=== PATIENT | female | born 1945 | race Caucasian/White ===

== ENCOUNTER 2017-05-23 11:31 | Day surgery (SDC) | payer MEDICARE, OTHER ==
[~2017-05-23] VITALS: Ht 160 cm; Wt 79.6 kg
[~2017-05-23 11:31] MED LIST: HYDCHL25 PO; METO25ER PO; OLME5TAB PO; Toprol Xl25 MG PO
[2017-05-24 05:33] LABS: BASOPHILS ABSOLUTE AUTO 0.01 K/mm3 (0.00-0.23); BASOPHILS PERCENT AUTO 0 % (0-2); EOSINOPHILS PERCENT AUTO 0 % (0-6); Hematocrit 35.9 % (33.0-51.0); Hemoglobin 12.4 g/dL (11.5-16.0); IMMATURE GRAN ABSOLUTE AUTO 0.04 K/mm3 (0.00-0.10); IMMATURE GRAN PERCENT AUTO 0 % (0-1); LYMPHOCYTES ABSOLUTE AUTO 0.91 K/mm3 (0.84-5.20); LYMPHOCYTES PERCENT AUTO 10 % (21-46); MONOCYTES ABSOLUTE AUTO 0.33 K/mm3 (0.16-1.47); MONOCYTES PERCENT AUTO 4 % (4-13); Mean Corpuscular HGB 31.2 pg (26.0-34.0); Mean Corpuscular HGB Conc 34.5 g/dL (31.5-36.5); Mean Corpuscular Volume 90 fL (80-100); Mean Platelet Volume 9.9 fL (9.1-12.4); NEUTROPHILS ABSOLUTE AUTO 7.64 K/mm3 (1.96-9.15); NEUTROPHILS PERCENT AUTO 86 % (41-73); Platelet Count 190 K/mm3 (150-400); RDW Coefficient Variation 12.6 % (11.7-14.2); RDW Standard Deviation 41.9 fL (35.1-46.3); Red Blood Cell Count 3.97 M/mm3 (3.80-5.20); White Blood Cell Count 8.93 K/mm3 (4.00-11.30)
[2017-05-24 06:02] LABS: Anion Gap 10 mmol/L (6-16); Blood Urea Nitrogen 22 mg/dL (8-24); Bun/Creatinine Ratio 24.3 (12.0-20.0); CO2, Blood 26 mmol/L (21-32); Calcium, Blood 8.8 mg/dL (8.5-10.1); Chloride, Blood 104 mmol/L (98-108); Creatinine, Blood 0.91 mg/dL (0.40-1.00); Glomerular Filtration Rate >60 (60-); Glucose, Blood 130 mg/dL (70-99); Potassium, Blood 3.7 mmol/L (3.5-5.5); Sodium, Blood 140 mmol/L (136-145)
[2017-05-24] MEDS ORDERED: PROM25 PO (15:21)
[2017-05-24] MEDS ORDERED: ENOX40I SC (15:22)
[2017-05-24] MEDS ORDERED: Percocet 5-3251 EACH PO (15:22)
== END 2017-05-24 16:14 | disposition home or self-care (01) ==
LOC: SURS 11:31 → PRE IP 11:31 → SURS 11:31 → ORSCMMR 11:31 → EDSTATUS 13:00 → PRE IP 13:00 → SURS 18:00 → ORSCMMR 05-24 16:14
PROVIDERS: Orthopaedic Surgery
PROC: 0SRD0J9 Replacement of Left Knee Joint with Synthetic Substitute, Cemented, Open Approach (ICD-10-PCS; principal; 2017-05-23 13:00)
DX: M17.0 Bilateral primary osteoarthritis of knee (principal); I10 Essential (primary) hypertension; E03.9 Hypothyroidism, unspecified; Z79.899 Other long term (current) drug therapy
CPT/HCPCS: 36415; 73560-LT; 80048; 82947; 83735; 85025; 86850; 86900; 86901; 88300; 97116; 97162; 97530; C1713; C1776; G8978; G8979; J0171; J0360; J0690; J0735; J1100; J1650; J1885; J2250; J2370; J2405; J2550; J2765; J2795; J3010; J3370; J7120

== ENCOUNTER 2020-07-27 08:39 | Day surgery (SDC) | payer MEDICARE, OTHER ==
[~2020-07-27] VITALS: Ht 160 cm; Wt 73.0 kg
== END 2020-07-27 10:25 | disposition home or self-care (01) ==
LOC: ORSCSDS 08:39
PROC: 0DJD8ZZ Inspection of Lower Intestinal Tract, Via Natural or Artificial Opening Endoscopic (ICD-10-PCS; principal; 2020-07-27)
DX: Z12.11 Encounter for screening for malignant neoplasm of colon (principal); K57.30 Diverticulosis of large intestine without perforation or abscess without bleeding; I10 Essential (primary) hypertension; E78.5 Hyperlipidemia, unspecified; E05.00 Thyrotoxicosis with diffuse goiter without thyrotoxic crisis or storm; Z79.899 Other long term (current) drug therapy
CPT/HCPCS: J2704; J7120

== ENCOUNTER 2022-09-16 06:42 | Day surgery (SDC) | payer MEDICARE, OTHER ==
[~2022-09-16] VITALS: Ht 160 cm; Wt 72.6 kg
[~2022-09-16 06:42] MED LIST changes: +ATOR20 PO; +Benicar Hct 201 EACH PO; +CALCIUM 600 +1 EA11 PO; +ENOX40I SC; +HYDROCHLOROTHIA25 MG PO; +OMEP20ER PO; +PROM25 PO; +Percocet 5-3251 EACH PO; +THERA-D2000 UNIT PO
[2022-09-16] MEDS ORDERED: LOSA50 PO (07:04)
--- NOTE | 2022-09-16 07:35 | NUR ---
09/16/22 0735 EUFEMIA OLEARY INTRASCALINE BLOCK PERFORMED IN PRE OP WITH DR. WINCHESTER AND MEDICAL STUDENT KAILEE. TIME OUT PERFORMED PRIOR TO START. VSS T/O PROCEDURE. PT PREMEDICATED WTH IV FENTANYL PER MD WINCHESTER. BLOCK COMPLETED WITHOUT INCIDENCE
--- NOTE | 2022-09-16 08:46 | NUR ---
09/16/22 0846 Carmina Leslie PATIENT PLACED IN BEACH CHAIR ON TMAX WITH RIGHT ARM IN SDPIDER. LEFT ON ON ARM BOARD WITH GEL PAD AND SECURED WITH A SAFETY STRAP. WEDGE UNDER LEGS AND BEAR HUG ON HIGH HEAT AND LOW FAN. TWO SAFETY STRAPS WITH GEL PAD UNDER THEM PLACE ON THIGHS AND LOWER LEGS. HEAD WAS PLACED IN A FOAM REST AND SECURED TO HEAD REST.
--- NOTE | 2022-09-16 11:06 | NUR ---
09/16/22 1106 Myrna Silva CEMENT SIDE LASTER CAN START TXA AT 1100. TXA STARTED AT 1104.
[2022-09-16 11:12] VITALS: BP 130/54
== END 2022-09-16 13:23 | disposition home or self-care (01) ==
LOC: ORSCSDS 06:42
PROVIDERS: Orthopaedic Surgery
PROC: 0RRJ00Z Replacement of Right Shoulder Joint with Reverse Ball and Socket Synthetic Substitute, Open Approach (ICD-10-PCS; principal; 2022-09-16 07:30)
DX: M19.011 Primary osteoarthritis, right shoulder (principal); I12.9 Hypertensive chronic kidney disease with stage 1 through stage 4 chronic kidney disease, or unspecified chronic kidney disease; N18.9 Chronic kidney disease, unspecified; E78.5 Hyperlipidemia, unspecified; E05.00 Thyrotoxicosis with diffuse goiter without thyrotoxic crisis or storm; Z87.891 Personal history of nicotine dependence; Z79.899 Other long term (current) drug therapy
CPT/HCPCS: 73030; A9270; C1713; C1776; J0171; J0696; J1100; J2370; J2405; J2704; J2795; J3010; J3370; J7120

== ENCOUNTER 2024-07-06 08:41 | Day surgery (SDC) | payer OTHER ==
[~2024-07-06] VITALS: Ht 160 cm; Wt 71.7 kg
[2024-07-06] VITALS (14 sets, daily range): BP systolic 119–160; BP diastolic 55–74
[~2024-07-06 08:41] MED LIST changes: +Acetaminophen 500 MG Tab PO SCH; +Bupivacaine 0.5% Inj 10 ML Vial ONE; +CeFAZolin Sodium 2,000 MG in NS 100 ML IV SCH; +Chlorhexidine Mouth Care 15 ML UDC MT SCH; +LOSA50 PO; +Lactated Ringer's 1,000 ML IV SCH; +OxyCODONE HCL 10 MG TABCR PO SCH; +Ropivacaine 0.5% HCl/Pf 123.125 MG,EPINEPHrine HCL 0.25 MG,Ketorolac Tromethamine 15 MG... INFIL SCH; +Tranexamic Acid 100 ML IV SCH; +propofoL 100 ML IV ONE
[2024-07-06] MEDS ORDERED: Ondansetron HCl 2 MG / ML 2ML Vial ONE (09:33)
[2024-07-06] MEDS ORDERED: Dexamethasone Sod Phos 10 MG/ML 1ML VIAL ONE (09:33)
[2024-07-06] MEDS ORDERED: Ketorolac Tromethamine 30mg Vial ONE (09:33)
[2024-07-06] MEDS ORDERED: OxyCODONE HCL 5 MG TAB PO PRN ×2 (09:45)
[2024-07-06] MEDS ORDERED: Magnesium Hydroxide Conc 10 ML UDC PO PRN (09:45)
[2024-07-06] MEDS ORDERED: Lactated Ringer's 1,000 ML IV SCH (09:45)
[2024-07-06] MEDS ORDERED: Promethazine HCl 25 MG Tab PO PRN ×2 (09:45→09:55)
[2024-07-06] MEDS ORDERED: Metoclopramide HCl 5MG / ML 2ML Vial IV PRN (09:45)
[2024-07-06] MEDS ORDERED: Ondansetron HCl 2 MG / ML 2ML Vial IV PRN (09:50)
[2024-07-06] MEDS ORDERED: DiphenhydrAMINE HCL 25 MG Cap PO PRN (09:50)
[2024-07-06] MEDS ORDERED: FLU VACC TS2024-25(6MOS UP)/PF 45 MCG/0.5 ML SYRINGE IM PRN (09:50)
[2024-07-06] MEDS ORDERED: HYDROmorphone HCl/Pf 1MG SYR IV PRN (09:50)
[2024-07-06] MEDS ORDERED: Bisacodyl 10 MG Supp PR PRN (09:55)
[2024-07-06] MEDS ORDERED: FentaNYL Citrate 50 MCG/ML 5 ML Injection ONE (10:43)
[2024-07-06] MEDS ORDERED: FentaNYL Citrate 50 MCG/ML 2 ML Injection ONE (10:43)
[2024-07-06] MEDS ORDERED: Metoclopramide HCl 5MG / ML 2ML Vial ONE (10:48)
--- NOTE | 2024-07-06 10:53 | NUR ---
Ambulatory in Day Surgery WITH PERSONAL CANE. History, Chart, Medications and Allergies reviewed before start of procedure. Lungs clear T/O to Auscultation. Patient confirms NPO status and agrees with scheduled surgery. Pre-Op teaching done. Pt verbalizes understanding. PT BELONGINGS PLACED UNDERNEATH GURNEY FOR SAFEKEEPING. PT CANE PLACED UNDERNEATH GURNEY FOR SAFEKEEPING. PT DENTURES TAKEN TO PACU FOR SAFEKEEPING.
[2024-07-06] MEDS ORDERED: ePHEDrine Sulfate 50 MG/ML 1ML Injection ONE (11:02)
--- NOTE | 2024-07-06 13:30 | NUR ---
PT ARRIVED TO RM 217 FROM PACU AT APPROXIMATELY 1320. PT EDUCATED TO USE THE CALL LIGHT, SHE WAS ORIENTED TO ROOM AND UNIT. PT ALERT/ORIENTED. FRIEND AT THE BEDSIDE FOR SUPPORT. PT DENIED PAIN.
[2024-07-06] MEDS ORDERED: Acetaminophen 500 MG Tab PO SCH (16:00)
[2024-07-06] MEDS ORDERED: Ketorolac Tromethamine 15mg Vial IV SCH (18:00)
--- NOTE | 2024-07-06 19:41 | NUR ---
SHIFT SUMMARY PT IS POD#0 FROM R TKA WITH DR. RICHARDSON. SHE WORKED WITH THERAPY TODAY BUT WAS UNABLE TO MEET ALL GOALS. HER BP WAS ALSO ELEVATED DURING THERAPY. PLAN FOR DISCHARGE HOME TOMORROW. PT USES HER CALL LIGHT APPROPRIATELY. PAIN MANAGED WITH TYLENOL AND TORADOL. BEDSIDE REPORT GIVEN TO GHISLAINE DOYLE.
[2024-07-06] MEDS ORDERED: CeFAZolin Sodium 2,000 MG in NS 100 ML IV SCH (20:00)
[2024-07-06] MEDS ORDERED: Docusate Sodium 100 MG Cap PO SCH (21:00)
[2024-07-06] MEDS ORDERED: Losartan Potassium 50 MG Tab PO SCH (22:40)
[2024-07-07 03:06] VITALS: BP 136/57
--- NOTE | 2024-07-07 04:29 | NUR ---
NOS SUMMARY- PT VOIDING AND AMBULATORY. PT PAIN MANAGED WELL PER JUN. PT DRESSING C/D/I. PT HAS RESTED COMFORTABLY. CALL LIGHT IN REACH.
[2024-07-07 05:37] LABS: BASOPHILS PERCENT AUTO 0 % (0-2); EOSINOPHILS PERCENT AUTO 0 % (0-6); Hemoglobin 10.8 g/dL (11.5-16.0); IMMATURE GRAN ABSOLUTE AUTO 0.02 K/mm3 (0.00-0.10); IMMATURE GRAN PERCENT AUTO 0 % (0-1); LYMPHOCYTES ABSOLUTE AUTO 0.91 K/mm3 (0.84-5.20); LYMPHOCYTES PERCENT AUTO 10 % (21-46); MONOCYTES ABSOLUTE AUTO 0.57 K/mm3 (0.16-1.47); MONOCYTES PERCENT AUTO 6 % (4-13); Mean Corpuscular HGB 31.6 pg (26.0-34.0); Mean Corpuscular HGB Conc 34.8 g/dL (31.5-36.5); Mean Corpuscular Volume 91 fL (80-100); Mean Platelet Volume 10.5 fL (9.1-12.4); NEUTROPHILS ABSOLUTE AUTO 7.52 K/mm3 (1.96-9.15); NEUTROPHILS PERCENT AUTO 83 % (41-73); Platelet Count 183 K/mm3 (150-400); Red Blood Cell Count 3.42 M/mm3 (3.80-5.20); White Blood Cell Count 9.02 K/mm3 (4.00-11.30)
[2024-07-07 05:56] LABS: Bun/Creatinine Ratio 32.8 (12.0-20.0); Calcium, Blood 8.5 mg/dL (8.5-10.1); Creatinine, Blood 0.79 mg/dL (0.40-1.00); Potassium, Blood 3.2 mmol/L (3.5-5.5)
[2024-07-07 07:32] VITALS: BP 145/75
[2024-07-07] MEDS ORDERED: Atorvastatin 10 MG Tab PO SCH (09:00)
[2024-07-07] MEDS ORDERED: Losartan Potassium 50 MG Tab PO SCH (09:00)
[2024-07-07] MEDS ORDERED: Aspirin 81 MG Chew PO SCH (09:00)
[2024-07-07] MEDS ORDERED: HydroCHLOROthiazide 25 mg Tab PO SCH (09:00)
[2024-07-07] MEDS ORDERED: Calcium/Vit D 600 mg-400 Unit Tab PO SCH (09:00)
--- NOTE | 2024-07-07 10:31 | NUR ---
DISCHARGE PATIENT READ AND SIGNED ALL INSTRUCTIONS, EXTRA DRESSING IN PACKET WITH PATIENT, ICE MACHINE PACKED UP AND PATIENT LEAVES VIA PRIVATE VEHICLE.
== END 2024-07-07 10:55 | disposition home or self-care (01) ==
LOC: ORSCMMR 08:41 → ORD 10:00 → ORSCMMR 10:00 → ORD 11:00 → SURS 13:16 → ORSCMMR 07-07 10:55
PROVIDERS: Orthopaedic Surgery
PROC: 0SRC0JA Replacement of Right Knee Joint with Synthetic Substitute, Uncemented, Open Approach (ICD-10-PCS; principal; 2024-07-06 10:00)
DX: M17.11 Unilateral primary osteoarthritis, right knee (principal); E78.5 Hyperlipidemia, unspecified; E03.9 Hypothyroidism, unspecified; I12.9 Hypertensive chronic kidney disease with stage 1 through stage 4 chronic kidney disease, or unspecified chronic kidney disease; N18.2 Chronic kidney disease, stage 2 (mild); Z79.899 Other long term (current) drug therapy
CPT/HCPCS: 36415; 73560-RT; 80048; 85025; 97110; 97116; 97161; 97530; A9270; C1713; C1776; J0171; J0690; J0735; J1100; J1885; J2405; J2704; J2765; J2795; J3010; J7120